=== PATIENT | female | born 1995 | race African-American/Black ===

== ENCOUNTER 2020-06-09 19:14 | Emergency (ER) | payer OTHER ==
[~2020-06-09] VITALS: Ht 175.3 cm; Wt 63.5 kg
[2020-06-09 20:55] LABS: URINE BILIRUBIN 1+ (Negative); URINE BLOOD NEGATIVE (Negative); URINE CLARITY CLEAR; URINE COLOR YELLOW; URINE GLUCOSE-RANDOM* NEGATIVE (Negative); URINE KETONES NEGATIVE (Negative); URINE LEUKOCYTES-REFLEX NEGATIVE (Negative); URINE NITRITE-REFLEX NEGATIVE (Negative); URINE PROTEIN (DIPSTICK) NEGATIVE (Negative); URINE SPECIFIC GRAVITY >= 1.030 (1.005-1.035); URINE UROBILINOGEN 0.2 E.U./dl (0.2-1.0)
[2020-06-09 20:57] LABS: ICTOTEST (BILI CONFIRMATORY) Negative (Negative)
[2020-06-09 21:09] LABS: AMP/METHAMP Negative (Negative); BARBITURATES Negative (Negative); BENZODIAZEPINES Negative (Negative); COCAINE Negative (Negative); METHADONE Negative (Negative); OPIATES Negative (Negative); PCP Negative (Negative)
[2020-06-09 21:13] LABS: ANION GAP 13 mmol/L (7-16); BUN 11 mg/dL (7-18); CALCIUM 9.2 mg/dL (8.5-10.1); CHLORIDE 103 mmol/L (98-107); CO2 24 mmol/L (21-32); GLUCOSE 155 mg/dL (74-106); POTASSIUM 3.7 mmol/L (3.5-5.1); SODIUM 140 mmol/L (136-145)
[2020-06-09 21:18] LABS: ALBUMIN 3.8 g/dL (3.4-5.0); LIPASE 103 U/L (73-393); SGOT 15 U/L (15-37); SGPT 21 U/L (30-65); TOTAL BILIRUBIN 0.5 mg/dL (0.2-1.0)
[2020-06-09 21:47] LABS: ABSOLUTE NEUTROPHILS 9.1 thou/uL (1.4-8.2); BASOPHILS 0.4 % (0.0-2.0); EOSINOPHILS 0.3 % (0.0-3.0); HEMATOCRIT 40.1 % (37.0-47.0); HEMOGLOBIN 13.4 gm/dL (12.0-15.0); LYMPHOCYTES 13.5 % (24.0-44.0); MCH 33.5 pg (26.0-34.0); MCHC 33.3 g/dL (28.0-37.0); MCV 100.4 fL (80.0-100.0); MONOCYTES 4.3 % (1.0-8.0); PLATELET COUNT 227 thou/uL (150-400); POLYS 81.5 % (36.0-66.0); RBC 3.99 mil/uL (4.20-5.00); RDW 11.9 % (10.5-14.5); WBC 11.1 thou/uL (4.0-11.0)
[2020-06-09 23:00] VITALS: BP 98/55
[2020-06-10 02:36] LABS: SALICYLATE < 2.8 mg/dL (2.8-20.0)
--- NOTE | 2020-06-10 07:12 | EKG ---
[facility] [place] [place] [address] ELECTROCARDIOGRAM REPORT Name: MIKEL ACOSTA Room #: DEP [facility]#: [id number] Admission: 06/09/20 Attend Phys: Discharge: 06/09/20 Date of : [birth year] Report #: [id number] THIS REPORT FOR: cc: DANY - Becky family physician/PCP DANY - Becky family physician/PCP Bharat Obando MD [facility] ~ THIS REPORT FOR: //name// [facility] ED Test Date: 2020-06-09 Test Time: 20:55:21 Pat Name: MIKEL ACOSTA Department: Room: Gender: F Imaging Assistant: : 1995 Requested By: Ammon Martínez Order Number: [id number] : Bharat Obando Measurements Intervals [place] Rate: 69 P: 61 PA: 176 QRS: 52 QRSD: 95 T: 12 QT: 389 QTc: 417 Interpretive Statements Sinus rhythm No previous ECG available for comparison Electronically Signed On 06-10-2020 7:11:51 CDT by Bharat Obando [email or web address] <ELECTRONICALLY SIGNED> By: Bharat Obando MD, FACC 06/10/20710 54 54 Bharat Obando MD, FACC /EPI
== END 2020-06-09 23:00 | disposition home or self-care (01) ==
LOC: ER 19:14 → EDBD 19:14 → ER 23:00
PROVIDERS: Emergency Medicine
DX: F12.929 Cannabis use, unspecified with intoxication, unspecified (principal); R11.2 Nausea with vomiting, unspecified; R45.89 Other symptoms and signs involving emotional state